=== PATIENT | female | born 1955 | race Caucasian/White ===

== ENCOUNTER 2021-10-22 12:10 | Day surgery (SDC) | payer MEDICARE, MEDICAID ==
[2021-10-16 12:04] LABS: BASOPHILS # (AUTO) 0.1 X10'3 (0-0.2); BASOPHILS % (AUTO) 0.6 % (0-1); EOSINOPHILS # (AUTO) 0.3 X10'3 (0-0.9); EOSINOPHILS % (AUTO) 3.1 % (0-6); LYMPHOCYTES # (AUTO) 1.9 X10'3 (1.1-4.8); LYMPHOCYTES % (AUTO) 18.3 % (21-51); MEAN CORPUSCULAR HEMOGLOBIN 31.1 PG (27.0-31.0); MEAN CORPUSCULAR HGB CONC 33.7 g/dL (33.0-36.5); MEAN CORPUSCULAR VOLUME 92.3 FL (78-98); MEAN PLATELET VOLUME 9.9 FL (7.4-10.4); MONOCYTES # (AUTO) 0.9 X10'3 (0-0.9); MONOCYTES % (AUTO) 8.9 % (2-12); NEUTROPHILS # (AUTO) 7.2 X10'3 (1.8-7.7); NEUTROPHILS % (AUTO) 69.1 % (42-75); PRE OP HEMATOCRIT 40.2 % (35.0-45.0); PRE OP HEMOGLOBIN 13.5 g/dL (12.0-16.0); PRE OP PLATELET COUNT 277 X10'3 (140-440); RED BLOOD COUNT 4.36 X10'6 (4.20-5.60); RED CELL DISTRIBUTION WIDTH 13.8 % (11.5-14.5)
[2021-10-16 12:15] LABS: ALBUMIN 3.4 G/DL (3.4-5.0); ALBUMIN/GLOBULIN RATIO 0.9 (1.1-1.5); ALKALINE PHOSPHATASE 106 IU/L (46-116); BLOOD UREA NITROGEN 11 MG/DL (7-18); BUN/CREATININE RATIO 12.5 (6.6-38.0); CALCIUM 9.4 MG/DL (8.5-10.1); CHLORIDE 105 MMOL/L (99-107); CREATININE 0.88 MG/DL (0.40-0.90); PRE OP ALT 22 U/L (30-65); PRE OP ANION GAP 8 (8-16); PRE OP AST 21 U/L (10-37); PRE OP BILIRUB, TOTAL 0.3 MG/DL (0.0-1.0); PRE OP GLUCOSE 85 MG/DL (70-104); PRE OP POTASSIUM 3.9 MMOL/L (3.4-5.1); PRE OP SODIUM 143 MMOL/L (135-145); TOTAL CARBON DIOXIDE 30.5 MMOL/L (24-32); TOTAL PROTEIN 7.2 G/DL (6.4-8.2); eGFR 64 ML/MIN
[~2021-10-22] VITALS: Ht 162.6 cm; Wt 119.6 kg
[2021-10-22] VITALS (13 sets, daily range): BP systolic 122–140; BP diastolic 57–90
[~2021-10-22 12:10] MED LIST: CETI10TA15 PO; GABA300C PO; LOVA40TA2 PO; MONT10TA21 PO; OMEP40CA21 PO; [UNRECOGNIZED DRUG - OTHER] PO; [UNRECOGNIZED DRUG - OTHER] PO; cefazolin/dext.iso 2gm/50ml IV ONE; famotidine 20mg tablet PO ONE; ringers solution, lacted 1,000 ML IV SCH; vancomycin 1,500 MG in NS 300ml IV soln IV ONE
[2021-10-22] MEDS ORDERED: cloNIDine hcl/PF 100mcg/ml inj ONE (14:34)
[2021-10-22] MEDS ORDERED: sevoflurane 250ml liquid IH ONE (14:35)
[2021-10-22] MEDS ORDERED: fentaNYL/PF 50MCG/1 ML 2ML syringe ONE (14:45)
[2021-10-22] MEDS ORDERED: midazolam 1 mg/ML 2ml injection ONE (15:15)
[2021-10-22] MEDS ORDERED: ROPIVAcaine 0.5% (5mg/ml) 30ml vial ONE ×2 (16:26→16:27)
[2021-10-22] MEDS ORDERED: LIDOcaine 1%/PF 5ML 10 MG/ML VIAL ONE (16:26)
[2021-10-22] MEDS ORDERED: propofol inj 20 ML IV ONE (16:26)
[2021-10-22] MEDS ORDERED: rocuronium 10mg/ml inj IV ONE (16:27)
[2021-10-22] MEDS ORDERED: LIDOcaine 2% (20mg/ml) 5ml vial ONE (16:27)
[2021-10-22] MEDS ORDERED: ondansetron/PF 4mg/2ml inj ONE (16:27)
[2021-10-22] MEDS ORDERED: dexamethasone sod phosphate 4mg/ml inj. ONE (16:27)
[2021-10-22] MEDS ORDERED: glycopyrrolate 0.2mg/ml inj ONE (16:33)
[2021-10-22] MEDS ORDERED: neostigmine methylsulfate 1 MG/ML 10ml vial ONE (16:33)
--- NOTE | 2021-10-22 16:42 | NUR ---
Received from OR via , accompanied by Anesthesiologist DR GANT and report given by Anesthesiolgist. PT PRESENTS WITH 20G LEFT HAND, DRESSING ON RIGHT SHOULDER DRY AND INTACT, VSS. Addendum: 10/22/21 at 1701 by Janessa Dockery RN, RN Amended: Links added.
[2021-10-22] MEDS ORDERED: meperidine/PF 25mg/ml syringe IV PRN ×3 (16:50)
[2021-10-22] MEDS ORDERED: hydrALAZINE 20mg/ml inj. IV PRN (16:50)
[2021-10-22] MEDS ORDERED: acetaminophen 1,000mg/100ml IV 100 ML IV PRN (16:50)
[2021-10-22] MEDS ORDERED: ondansetron/PF 4mg/2ml inj IV PRN (16:50)
[2021-10-22] MEDS ORDERED: proCHLORperazine 10 MG/2 ml inj IV PRN (16:50)
[2021-10-22] MEDS ORDERED: morphine 4 MG/ML inj SYRINge IV PRN (16:50)
[2021-10-22] MEDS ORDERED: labetalol 20mg/4ml (5mg/ml) syringe IV PRN (16:50)
[2021-10-22] MEDS ORDERED: ringers solution, lacted 1,000 ML IV SCH (16:50)
[2021-10-22] MEDS ORDERED: morphine 2 MG/ML inj. syringe IV PRN (16:50)
[2021-10-22] MEDS ORDERED: ketorolac trometh. 30mg/ml inj. IV ONE (16:50)
--- NOTE | 2021-10-22 18:32 | NUR ---
ALL DC CRITERIA MET, PT STABLE, VSS. IV CATHETER REMOVED. DC INSTRUCTIONS REVIEWED WITH PT, PT VERBALIZED UNDERSTANDING WITH NO FURTHER QUESTIONS AT THIS TIME. PT PLACED IN WHEELCHAIR AND TAKEN TO VEHICLE WHERE WAS WAITING. Addendum: 10/22/21 at 1900 by Janessa Dockery RN, RN Amended: Links added.
== END 2021-10-22 18:32 | disposition home or self-care (01) ==
LOC: PAS 12:10
PROVIDERS: ATTEND Orthopaedic Surgery
DX: M19.011 Primary osteoarthritis, right shoulder (principal); M75.41 Impingement syndrome of right shoulder; M24.011 Loose body in right shoulder; G89.18 Other acute postprocedural pain; K21.9 Gastro-esophageal reflux disease without esophagitis; G47.00 Insomnia, unspecified; E06.3 Autoimmune thyroiditis; M54.30 Sciatica, unspecified side; G47.33 Obstructive sleep apnea (adult) (pediatric); E66.9 Obesity, unspecified; Z68.42 Body mass index [BMI] 45.0-49.9, adult; Z79.899 Other long term (current) drug therapy; Z79.01 Long term (current) use of anticoagulants; Z98.84 Bariatric surgery status; Z98.1 Arthrodesis status; Z98.890 Other specified postprocedural states; Z88.5 Allergy status to narcotic agent; Z88.2 Allergy status to sulfonamides; Z20.822 Contact with and (suspected) exposure to COVID-19
CPT/HCPCS: 29824; 29826; 36415; 64415; 76942; 80053; 82948; 85025; 93005; J0690; J0735; J1100; J2250; J2405; J2704; J2710; J2795; J3010; J3370; J3490; J7030; J7040; J7120; U0003; U0005; Z7506; Z7508; Z7512; A4215; A4565; A4618; A6258; A7000

== ENCOUNTER 2022-06-05 10:30 | Outpatient (CLI) | payer MEDICARE, MEDICAID ==
[~2022-06-05 10:30] MED LIST changes: -cefazolin/dext.iso 2gm/50ml IV ONE; -famotidine 20mg tablet PO ONE; -ringers solution, lacted 1,000 ML IV SCH; -vancomycin 1,500 MG in NS 300ml IV soln IV ONE
[2022-06-05] MEDS ORDERED: BARIUM SULFATE 340 ML SUSP.RECON***PROCEDURE AREA ONLY**DONT ENTER PO ONE (14:00)
== END 2022-06-05 23:59 | disposition home or self-care (01) ==
LOC: RAD 10:30
PROVIDERS: ATTEND Surgery
DX: K44.9 Diaphragmatic hernia without obstruction or gangrene (principal); E66.01 Morbid (severe) obesity due to excess calories; R13.10 Dysphagia, unspecified; R12 Heartburn; K95.89 Other complications of other bariatric procedure
CPT/HCPCS: 74240